=== PATIENT | male | born 1955 | race Caucasian/White ===

== ENCOUNTER 2017-05-13 12:59 | Inpatient (IN) | payer OTHER ==
[~2017-05-13] VITALS: Ht 170.2 cm; Wt 91.6 kg
[2017-05-13] MEDS ORDERED: ONDANSETRON INJ 2 MG/ML 2 ML VIAL ONE (13:19)
[2017-05-13] MEDS ORDERED: SODIUM CHLORIDE 0.9% 1000ML 1,000 ML IV STA (13:26)
[2017-05-13 13:56] LABS: BASO % 0.4 %; BASO ABS # 0.03 K/uL (0-0.2); COMPLETE YES; EOS % 0.3 %; HEMATOCRIT 41.5 % (42-52); IG% 0.7 %; LYMPH % 21.4 %; LYMPH ABS # 1.62 K/uL (1.2-3.4); MEAN CORPUSCULAR HEMOGLOBIN 32.1 pg (25-34); MEAN CORPUSCULAR HGB CONC 36.9 g/dl (32-36); MEAN PLATELET VOLUME 11.1 fL (7.4-10.4); MONO % 7.8 %; NEUT % 69.4 %; PLATELET COUNT 303 K/uL (130-400); RED BLOOD COUNT 4.77 M/uL (4.7-6.1); WHITE BLOOD COUNT 7.56 K/uL (4.8-10.8)
--- NOTE | 2017-05-13 14:01 | DIAGNOSTIC IMAGING REPORT ---
CHEST ONE VIEW PORTABLE HISTORY: Evaluate Fever/Sepsis COMPARISON: None. FINDINGS: No pneumothorax. The heart is moderately enlarged. No pleural effusions. No focal lung consolidations to suggest pneumonia. Tortuous thoracic aorta. No evidence for pulmonary edema. Low lung volumes. IMPRESSION: Low lung volumes. Moderate cardiomegaly. Electronically signed by: Jeffery Hough M.D. 05/13/2017 2:00 PM Dictated Date/Time: 05/13/2017 1:59 PM
--- NOTE | 2017-05-13 14:12 | DIAGNOSTIC IMAGING REPORT ---
HEAD CT NONCONTRAST CT DOSE: 767.83 mGy.cm HISTORY: Evaluate Fever/Sepsis TECHNIQUE: Multiaxial CT images of the head were performed without the use of intravenous contrast. Automated exposure control was utilized for this study. Comparison: None. Findings: Motion artifact. The paranasal sinuses and mastoid air cells are clear. The calvarium and skull base are intact. There is no mass, hematoma, midline shift, acute infarct. White matter hypodensity is nonspecific but suggestive of microvascular ischemic change. The ventricles and sulci demonstrate mild age-related involutional changes. 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 Impression: Motion artifact. No definite acute intracranial abnormality. Electronically signed by: Jeffery Hough M.D. 05/13/2017 2:11 PM Dictated Date/Time: 05/13/2017 2:07 PM
[2017-05-13 14:41] LABS: ALKALINE PHOSPHATASE 74 U/L (45-117); ALT/SGPT 100 U/L (12-78); AST/SGOT 64 U/L (15-37); BLOOD UREA NITROGEN 20 mg/dl (7-18); BUN/CREATININE RATIO 13.1 (10-20); CALCIUM 9.4 mg/dl (8.5-10.1); CARBON DIOXIDE 22 mmol/L (21-32); CHLORIDE 96 mmol/L (98-107); CKMB/CK RATIO 6.3 (0-3.0); GLUCOSE 633 mg/dl (70-99); MAGNESIUM 2.2 mg/dl (1.8-2.4); POTASSIUM 3.9 mmol/L (3.5-5.1); SODIUM 132 mmol/L (136-145); THYROID STIMULATING HORMONE 0.661 uIu/ml (0.300-4.500)
[2017-05-13 14:47] LABS: ARTERIAL BLD GAS O2 SATURATION 94.4 % (90-95); ARTERIAL BLOOD GAS BASE EXCESS -1.6 mEq/L (-9-1.8); ARTERIAL BLOOD GAS HCO3 21 mmol/L (19-24); ARTERIAL BLOOD GAS PO2 73 mm/Hg (80-95); ARTERIAL BLOOD GAS pH 7.46 (7.35-7.45)
[2017-05-13 14:53] LABS: ALLEN TEST POS (POS); O2 ADMINISTRATION ROOM AIR
[2017-05-13] MEDS ORDERED: DKA GOAL RANGE 150-250 mg/dl 1 EA ONE (15:00)
[2017-05-13 15:01] LABS: BETA-HYDROXYBUTYRATE 12.34 mg/dL (0.2-2.81)
--- NOTE | 2017-05-13 15:01 | EMERGENCY ROOM VISIT NOTE ---
History Report prepared by Maximo: Sadaf Simpson Under the Supervision of: Dr. Derek Espana D.O. First contact with patient: 13:26 Chief Complaint: HYPERGLYCEMIA Stated Complaint: HYPERGLYCEMIA/HTN Nursing Triage Summary: Pt arrives ALS from [facility]. Pt walking to medical area and had a syncopal episode, fell and hit head. Abrasion above R eye. Pts BSG found to be "HI" on meter for both medical staff and EMS. BP elevated 210/144. Pt received 20 units regular insulin sq and 0.2 mg clonidine WELL DRILL OPERATOR ROTARY DRILL. Pt also received NSS 500 bolus. Pt normally stays in the MH unit, hasn't taken meds in approx 1 month. Pt is confused, garbled speech and will not follow commands. Pt had emesis x1 on arrival to ER. BSG also reads "HI" when taken on arrival. History of Present Illness The patient is a 61 year old male who presents to the Emergency Room with complaints of persistent hyperglycemia that was noticed WELL DRILL OPERATOR ROTARY DRILL. The patient came to the ED via ambulance from [facility]. The history is limited secondary to altered mental status. The patient appears confused with garbles speech and will not follow commands. The history was obtained from nursing staff. The patient was walking to the medical area to give a urine sample when he experienced a syncopal episode. The patient fell and hit his head. He has an abrasion above his right eye from the fall. The patient's BSG was checked after the syncopal episode and the meter read "HI." His blood pressure was also checked at that time and was found to be 210/144. The patient was given 20 units of regular insulin SQ at 1100 and 0.2 mg of Clonidine at 1138. The patient also received 500 NSS bolus en route to the ED. The patient typically resides in the [facility] unit at the [facility] and he has not taken his medications in 1 month. The patient experienced one episode of vomiting upon arrival to the ED. The patient's BSG read "HI" on the meter in the ambulance as well as on the meter upon arrival to the ED. EMS reported that at baseline the patient is able to talk and carry on some kind of conversation. Source of History: EMS, nursing staff History Limited By: AMS Onset: WELL DRILL OPERATOR ROTARY DRILL Position: other (global) Quality: other (hyperglycemia) Timing: other (persistent) Associated Symptoms: + LOC, + vomiting Note: hypertension Review of Systems See HPI for pertinent positives & negatives. A total of 10 systems reviewed and were otherwise negative. Past Medical & Surgical Medical Problems: (1) Diabetes Family History Unobtainable Social History Smoking Status: Unknown if Ever Smoked Housing Status: other ([facility]) Physical Exam Vital Signs Date Time Temp Pulse Resp B/P (MAP) Pulse Ox O2 Delivery O2 Flow Rate FiO2 05/13/17 13:27 115 26 187/140 96 Nasal Cannula 2.0 05/13/17 13:20 36.8 100 28 210/144 92 Room Air 05/13/17 13:14 103 Physical Exam CONSTITUTIONAL/VITAL SIGNS: Reviewed / noted above. GENERAL: Non-toxic in appearance. INTEGUMENTARY: Warm, dry, and [place]. HEAD: Normocephalic. EYES: without scleral icterus or trauma. ENT/OROPHARYNX: clear and moist. LYMPHADENOPATHY/NECK: Is supple without lymphadenopathy or meningismus. RESPIRATORY: Lungs clear and equal. CARDIOVASCULAR: Regular rate and rhythm. GI/ABDOMEN: Soft and nontender. No organomegaly or pulsatile mass. No rebound or guarding. Normal bowel sounds. EXTREMITIES: Warm and well perfused. BACK: No CVA tenderness. NEUROLOGICAL: Does not respond to verbal stimuli. Does not follow commands. Somewhat confused. Nonverbal. Intact without focal deficits. PSYCHIATRIC: normal affect. MUSCULOSKELETAL: Normally developed with good muscle tone. Medical Decision & Procedures ER Provider Diagnostic Interpretation: Radiology results as stated below per my review and radiologist interpretation: CHEST ONE VIEW PORTABLE FINDINGS: No pneumothorax. The heart is moderately enlarged. No pleural effusions. No focal lung consolidations to suggest pneumonia. Tortuous thoracic aorta. No evidence for pulmonary edema. Low lung volumes. IMPRESSION: Low lung volumes. Moderate cardiomegaly. Electronically signed by: Jeffery Hough M.D. 05/13/2017 2:00 PM Dictated Date/Time: 05/13/2017 1:[address] NONCONTRAST Findings: Motion artifact. The paranasal sinuses and mastoid air cells are clear. The calvarium and skull base are intact. There is no mass, hematoma, midline shift, acute infarct. White matter hypodensity is nonspecific but suggestive of microvascular ischemic change. The ventricles and sulci demonstrate mild age-related involutional changes. 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 Impression: Motion artifact. No definite acute intracranial abnormality. Electronically signed by: Jeffery Hough M.D. 05/13/2017 2:11 PM Dictated Date/Time: 05/13/2017 2:07 PM Laboratory Results 05/13/17 13:40 Red Blood Count 4.77, Mean Corpuscular Volume 87.0, Mean Corpuscular Hemoglobin 32.1, Mean Corpuscular Hemoglobin Concent 36.9, Mean Platelet Volume 11.1, Neutrophils (%) (Auto) 69.4, Lymphocytes (%) (Auto) 21.4, Monocytes (%) (Auto) 7.8, Eosinophils (%) (Auto) 0.3, Basophils (%) (Auto) 0.4, Neutrophils # (Auto) 5.25, Lymphocytes # (Auto) 1.62, Monocytes # (Auto) 0.59, Eosinophils # (Auto) 0.02, Basophils # (Auto) 0.03 05/13/17 13:40 Test 05/13/17 13:14 05/13/17 13:40 05/13/17 14:36 05/13/17 14:50 Bedside Glucose > 600 mg/dl (70-99) White Blood Count 7.56 K/uL (4.8-10.8) Red Blood Count 4.77 M/uL (4.7-6.1) Hemoglobin 15.3 g/dL (14.0-18.0) Hematocrit 41.5 % (42-52) Mean Corpuscular Volume 87.0 fL (80-100) Mean Corpuscular Hemoglobin 32.1 pg (25-34) Mean Corpuscular Hemoglobin Concent 36.9 g/dl (32-36) Platelet Count 303 K/uL (130-400) Mean Platelet Volume 11.1 fL (7.4-10.4) Neutrophils (%) (Auto) 69.4 % Lymphocytes (%) (Auto) 21.4 % Monocytes (%) (Auto) 7.8 % Eosinophils (%) (Auto) 0.3 % Basophils (%) (Auto) 0.4 % Neutrophils # (Auto) 5.25 K/uL (1.4-6.5) Lymphocytes # (Auto) 1.62 K/uL (1.2-3.4) Monocytes # (Auto) 0.59 K/uL (0.11-0.59) Eosinophils # (Auto) 0.02 K/uL (0-0.5) Basophils # (Auto) 0.03 K/uL (0-0.2) RDW Standard Deviation 38.0 fL (36.4-46.3) RDW Coefficient of Variation 11.9 % (11.5-14.5) Immature Granulocyte % (Auto) 0.7 % Immature Granulocyte # (Auto) 0.05 K/uL (0.00-0.02) Anion Gap 14.0 mmol/L (3-11) Est Creatinine Clear Calc Drug Dose 56.2 ml/min Estimated GFR () 56.6 Estimated GFR (Non- 48.8 BUN/Creatinine Ratio 13.1 (10-20) Lactic Acid Level 3.0 mmol/L (0.4-2.0) Calcium Level 9.4 mg/dl (8.5-10.1) Magnesium Level 2.2 mg/dl (1.8-2.4) Total Bilirubin 0.4 mg/dl (0.2-1) Direct Bilirubin 0.2 mg/dl (0-0.2) Aspartate Amino Transf (AST/SGOT) 64 U/L (15-37) Alanine Aminotransferase (ALT/SGPT) 100 U/L (12-78) Alkaline Phosphatase 74 U/L (45-117) Ammonia 23.0 umol/L (11-32) Total Creatine Kinase 65 U/L (39-308) Creatine Kinase MB 4.1 ng/ml (0.5-3.6) Creatine Kinase MB Ratio 6.3 (0-3.0) Troponin I < 0.015 ng/ml (0-0.045) Total Protein 8.2 gm/dl (6.4-8.2) Albumin 3.8 gm/dl (3.4-5.0) Lipase 431 U/L (73-393) Beta-Hydroxybutyric Acid 12.34 mg/dL (0.2-2.81) Thyroid Stimulating Hormone (TSH) 0.661 uIu/ml (0.300-4.500) Arterial Blood pH 7.46 (7.35-7.45) Arterial Blood Partial Pressure CO2 31 mmHg (35-46) Arterial Blood Partial Pressure O2 73 mm/Hg (80-95) Arterial Blood HCO3 21 mmol/L (19-24) Arterial Blood Oxygen Saturation 94.4 % (90-95) Arterial Blood Base Excess -1.6 mEq/L (-9-1.8) Arterial Blood Gas Delivery ROOM AIR Rickie Test POS (POS) Laboratory results as stated above per my review. Medications Administered Medications (Trade) Dose Ordered Sig/Bailee Route Start Time Stop Time Status Last Admin Dose Admin Ondansetron HCl (Zofran Inj) 4 mg STK-MED ONCE .ROUTE 05/13/17 13:19 05/13/17 13:20 DC 05/13/17 13:38 4 MG Sodium Chloride 1,000 ml @ 999 mls/hr Q1H1M STAT IV 05/13/17 13:26 05/13/17 14:26 DC 05/13/17 13:46 999 MLS/HR ECG Indication: syncope Rate (beats per minute): 103 Rhythm: sinus tachycardia Findings: RBBB, no acute ischemic change, no ectopy ED Course 1319: Ordered Zofran Inj 4 mg IV 1326: Sodium Chloride 1000 ml @ 999 mls/hr IV 1329: Previous medical records were reviewed. The patient was evaluated in room C8. A complete history and physical examination was performed. 1455: On reevaluation, the patient is resting comfortably. The patient will be evaluated for further management and care. 1457: Discussed the patient's case with Dr. Amarilis BEATTY. The patient will be evaluated for further treatment and disposition. Medical Decision Differential includes acute coronary syndrome, myocardial infarction, CVA, TIA, anemia, infection, pneumonia, UTI, pyelonephritis, poor nutrition, dehydration, electrolyte disturbance,hypoglycemia. Medication Reconciliation: I attest that I have personally reviewed the patient' s current medication list. Blood pressure Screening: Patient was found to have an elevated blood pressure and was referred to their primary doctor for recheck and further treatment. This is a 61-year-old male who presents to the ED with a chief complaint of altered mental status. [facility]. The patient apparently lives on the mental health unit in the [facility]. He is normally able to carry on a conversation, per EMS. The patient is nonverbal at this time. He is confused and unable to follow commands. He was found to have hyperglycemia at the [facility] and received 20 units of subcutaneous insulin at 11: 30. He received clonidine 0.2 mg orally at the same time. The patient reportedly had emesis when he arrived here. His initial pulse ox was 88% on room air. Chest x-ray did not show acute disease. His blood pressure was elevated at 187/140. The patient's CBC is normal. His blood sugar was 633. Lactic was 3.0. CAT scan of the head did not show acute disease. He had reportedly fallen. Ammonia level was normal. BUN is 20 and creatinine is 1.5. The patient was given IV fluids. He was started on IV insulin drip. His ABG reveals a compensated metabolic acidosis with adequate oxygenation. The patient was given IV Zofran. The patient will be seen by the hospitalist for further inpatient evaluation and care. Consults Time Called: 1445 Consulting Physician: Dr. Amarilis BEATTY Returned Call: [phone] Discussed the patient's case with Dr. Amarilis BEATTY. The patient will be evaluated for further treatment and disposition. Impression Primary Impression: Hyperglycemia Additional Impression: Altered mental status Scribe Attestation The scribe's documentation has been prepared under my direction and personally reviewed by me in its entirety. I confirm that the note above accurately reflects all work, treatment, procedures, and medical decision making performed by me. Departure Information Dispostion Being Evaluated By Hospitalist Referrals No Doctor, Assigned (PCP) Patient Instructions My [facility] Problem Qualifiers Additional Impression: Altered mental status Altered mental status type: unspecified Qualified Codes: R41.82 - Altered mental status, unspecified
[2017-05-13 15:13] LABS: PARTIAL THROMBOPLASTIN RATIO 0.9; PROTHROMBIN TIME (PATIENT) 10.6 SECONDS (9.0-12.0)
[2017-05-13] MEDS ORDERED: ASPI-232 PO (15:18)
[2017-05-13] MEDS ORDERED: CITA40TA12 PO (15:18)
[2017-05-13] MEDS ORDERED: RISP1TAB3 PO (15:18)
[2017-05-13] MEDS ORDERED: LSN40 PO (15:18)
[2017-05-13] MEDS ORDERED: AMLO-114 PO (15:18)
[2017-05-13] MEDS ORDERED: [UNRECOGNIZED DRUG - OTHER] SQ (15:18)
[2017-05-13] MEDS ORDERED: GLIP10TA10 PO (15:18)
[2017-05-13] MEDS ORDERED: ATOR10TA82 PO (15:18)
[2017-05-13] MEDS ORDERED: DIPH1TAB87 PO (15:18)
[2017-05-13] MEDS ORDERED: HYDR25TA4 PO (15:18)
[2017-05-13] MEDS ORDERED: METF1000 PO (15:18)
[2017-05-13] MEDS ORDERED: NovoLIN-R INSULIN PER UNIT CHARGE SC STA (16:11)
[2017-05-13] MEDS ORDERED: SODIUM CHLORIDE 0.9% 1000ML 1,000 ML IV SCH (16:28)
[2017-05-13] MEDS ORDERED: MODERATE STRESS LEVEL ONE (16:30)
[2017-05-13] MEDS ORDERED: NITROGLYCERIN 0.4 MG SL PER TAB CHARGE SL PRN (16:30)
[2017-05-13] MEDS ORDERED: MAGNESIUM HYDROXIDE SUSP 30 ML UDC PO PRN (16:30)
[2017-05-13] MEDS ORDERED: METOPROLOL TARTRATE 1 MG/ML VIAL IV PRN (16:30)
[2017-05-13] MEDS ORDERED: POLYETHYLENE (MIRALAX) 17 GM PACK PO PRN (16:30)
[2017-05-13] MEDS ORDERED: ACETAMINOPHEN 325 MG TAB PO PRN (16:30)
[2017-05-13] MEDS ORDERED: ALUMINUM/MAGNESIUM/SIMETH (MAALOX MAX) 30 ML UDC PO PRN (16:30)
[2017-05-13] MEDS ORDERED: DKA GOAL RANGE 150-250 mg/dl 1 EA SCH (16:30)
[2017-05-13] MEDS ORDERED: ONDANSETRON INJ 2 MG/ML 2 ML VIAL IV PRN (16:30)
[2017-05-13] MEDS ORDERED: PHARMACY GLYCEMIC MGMT CONSULT PRN (16:30)
[2017-05-13] MEDS ORDERED: INSULIN IV INFUSION PROTOCOL SCH (16:57)
--- NOTE | 2017-05-13 17:12 | History and Physical ---
History & Physical Date & Time of Service: May 13, 2017 at 16:40 Chief Complaint: Hyperglycemia/Htn Primary Care Physician: Caitie JIMÉNEZ History of Present Illness Source: clinic records, hospital records, other (security guards) Patient is a 61 y/o male, with PMHx of HTN, dyslipidemia, T2DM, and mental health issues, who presented to the ED from [facility] because of persistent hyperglycemia, AMS, and syncopal episode. History was obtained from ED HPI as patient has AMS and will not answer questions- he stared straight ahead through entire interview. According to the nurse in ED, patient will respond periodically to her answers/commands. Per security guards, at baseline, patient does not speak much, but that was the extend of their knowledge. According to ED record, the patient was walking to the medical area where he experienced a syncopal episode and fell hitting his head. His BSG was checked after the fall and read "HI," and his BP was 210/144. The patient was given 20 u regular insulin @ 1100 and 0.2 mg Clonidine @1138. He received 500 NS en route to hospital by EMS. The patient resides in the mental health unit at the care home and has not taken his medications in 1 month. He experienced 1 episode of vomiting MANAGER INTERFACE. At ED, initial reading was >600; patient was given 10 u novolin. ROS could not be obtained secondary to patient's status. Past Medical/Surgical History Medical Problems: 1. HTN 2. Dyslipidemia 3. T2DM 4. Mental health issue Surgical history: Unable to obtained due to AMS Family History Unobtainable Social History Smoking Status: Unknown if Ever Smoked Allergies Coded Allergies: No Known Allergies (Unverified , 05/13/17) Home Medications Scheduled Amlodipine (Norvasc), 10 MG PO DAILY Aspirin (Aspir-81), 1 TAB PO DAILY Atorvastatin (Lipitor), 10 MG PO DAILY Citalopram Hydrobromide (Celexa), 40 MG PO HS Diphenhydramine Hcl (Benadryl Allergy), 3 CAP PO HS Glipizide (Glipizide), 1 TAB PO BID Hydrochlorothiazide (Hctz), 25 MG PO DAILY Insulin Human Regular (Humulin R), 20 UNITS SQ DAILY Lisinopril (Lisinopril), 1 TAB PO DAILY Metformin Hcl (Glucophage), 1,000 MG PO BIDM Risperidone (Risperdal), 1 MG PO HS Physical Exam Vital Signs Date Time Temp Pulse Resp B/P (MAP) Pulse Ox O2 Delivery O2 Flow Rate FiO2 05/13/17 15:45 120 24 191/131 93 Nasal Cannula 2.0 05/13/17 15:07 108 24 195/121 95 Nasal Cannula 2.0 05/13/17 13:27 115 26 187/140 96 Nasal Cannula 2.0 05/13/17 13:20 36.8 100 28 210/144 92 Room Air 05/13/17 13:14 103 General Appearance: no apparent distress, + obese Head: normocephalic Eyes: normal inspection, PERRL ENT: hearing grossly normal Neck: supple Respiratory/Chest: lungs clear, no respiratory distress, no accessory muscle use Cardiovascular: regular rate, rhythm Abdomen/GI: normal bowel sounds, non tender, soft Extremities/Musculoskelatal: no calf tenderness, no pedal edema Neurologic/Psych: alert, + pertinent finding (stares straight ahead throughout interview ) Skin: normal color, warm/dry, no rash Diagnostics Laboratory Results Results Past 24 Hours Test 05/13/17 13:14 05/13/17 13:40 05/13/17 14:36 05/13/17 14:50 Range/Units Bedside Glucose > 600 70-99 mg/dl White Blood Count 7.56 4.8-10.8 K/uL Red Blood Count 4.77 4.7-6.1 M/uL Hemoglobin 15.3 14.0-18.0 g/dL Hematocrit 41.5 42-52 % Mean Corpuscular Volume 87.0 80-100 fL Mean Corpuscular Hemoglobin 32.1 25-34 pg Mean Corpuscular Hemoglobin Concent 36.9 32-36 g/dl Platelet Count 303 130-400 K/uL Mean Platelet Volume 11.1 7.4-10.4 fL Neutrophils (%) (Auto) 69.4 % Lymphocytes (%) (Auto) 21.4 % Monocytes (%) (Auto) 7.8 % Eosinophils (%) (Auto) 0.3 % Basophils (%) (Auto) 0.4 % Neutrophils # (Auto) 5.25 1.4-6.5 K/uL Lymphocytes # (Auto) 1.62 1.2-3.4 K/uL Monocytes # (Auto) 0.59 0.11-0.59 K/uL Eosinophils # (Auto) 0.02 0-0.5 K/uL Basophils # (Auto) 0.03 0-0.2 K/uL RDW Standard Deviation 38.0 36.4-46.3 fL RDW Coefficient of Variation 11.9 11.5-14.5 % Immature Granulocyte % (Auto) 0.7 % Immature Granulocyte # (Auto) 0.05 0.00-0.02 K/uL Sodium Level 132 136-145 mmol/L Potassium Level 3.9 3.5-5.1 mmol/L Chloride Level 96 98-107 mmol/L Carbon Dioxide Level 22 21-32 mmol/L Anion Gap 14.0 3-11 mmol/L Blood Urea Nitrogen 20 7-18 mg/dl Creatinine 1.50 0.60-1.40 mg/dl Est Creatinine Clear Calc Drug Dose 56.2 ml/min Estimated GFR () 56.6 Estimated GFR (Non- 48.8 BUN/Creatinine Ratio 13.1 10-20 Random Glucose 633 70-99 mg/dl Lactic Acid Level 3.0 0.4-2.0 mmol/L Calcium Level 9.4 8.5-10.1 mg/dl Magnesium Level 2.2 1.8-2.4 mg/dl Total Bilirubin 0.4 0.2-1 mg/dl Direct Bilirubin 0.2 0-0.2 mg/dl Aspartate Amino Transf (AST/SGOT) 64 15-37 U/L Alanine Aminotransferase (ALT/SGPT) 100 12-78 U/L Alkaline Phosphatase 74 45-117 U/L Ammonia 23.0 11-32 umol/L Total Creatine Kinase 65 39-308 U/L Creatine Kinase MB 4.1 0.5-3.6 ng/ml Creatine Kinase MB Ratio 6.3 0-3.0 Troponin I < 0.015 0-0.045 ng/ml Total Protein 8.2 6.4-8.2 gm/dl Albumin 3.8 3.4-5.0 gm/dl Lipase 431 73-393 U/L Beta-Hydroxybutyric Acid 12.34 0.2-2.81 mg/dL Thyroid Stimulating Hormone (TSH) 0.661 0.300-4.500 uIu/ml Arterial Blood pH 7.46 7.35-7.45 Arterial Blood Partial Pressure CO2 31 35-46 mmHg Arterial Blood Partial Pressure O2 73 80-95 mm/Hg Arterial Blood HCO3 21 19-24 mmol/L Arterial Blood Oxygen Saturation 94.4 90-95 % Arterial Blood Base Excess -1.6 -9-1.8 mEq/L Arterial Blood Gas Delivery ROOM AIR Rickie Test POS POS Prothrombin Time 10.6 9.0-12.0 SECONDS Prothromb Time International Ratio 1.0 0.9-1.1 Activated Partial Thromboplast Time 24.5 21.0-31.0 SECONDS Partial Thromboplastin Ratio 0.9 Microbiology Results 05/13/17 Blood Culture, Received Pending 05/13/17 Blood Culture, Received Pending Diagnostic Radiology HEAD CT NONCONTRAST CT DOSE: 767.83 mGy.cm HISTORY: Evaluate Fever/Sepsis TECHNIQUE: Multiaxial CT images of the head were performed without the use of intravenous contrast. Automated exposure control was utilized for this study. Comparison: None. Findings: Motion artifact. The paranasal sinuses and mastoid air cells are clear. The calvarium and skull base are intact. There is no mass, hematoma, midline shift, acute infarct. White matter hypodensity is nonspecific but suggestive of microvascular ischemic change. The ventricles and sulci demonstrate mild age-related involutional changes. 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 Impression: Motion artifact. No definite acute intracranial abnormality. Electronically signed by: Jeffery Hough M.D. 05/13/2017 2:11 PM Dictated Date/Time: 05/13/2017 2:07 PM The status of this report is Signed. Draft = Not yet reviewed or approved by Radiologist. Signed = Reviewed and approved by Radiologist. CHEST ONE VIEW PORTABLE HISTORY: Evaluate Fever/Sepsis COMPARISON: None. FINDINGS: No pneumothorax. The heart is moderately enlarged. No pleural effusions. No focal lung consolidations to suggest pneumonia. Tortuous thoracic aorta. No evidence for pulmonary edema. Low lung volumes. IMPRESSION: Low lung volumes. Moderate cardiomegaly. Electronically signed by: Jeffery Hough M.D. 05/13/2017 2:00 PM Dictated Date/Time: 05/13/2017 1:59 PM The status of this report is Signed. Draft = Not yet reviewed or approved by Radiologist. Signed = Reviewed and approved by Radiologist. <AttendingPhy></AttendingPhy> <FamilyPhy>No Doctor, Assigned</FamilyPhy> < PrimaryPhy>No Doctor, Assigned</PrimaryPhy> <UnitNumber>[id number]</UnitNumber> <VisitNumber>[id number] EKG SHELDON MENA ID:[id number] 13-MAY-2017 13:15:40 [facility] Sinus tachycardia with Fusion complexes Left axis deviation Right bundle branch block Inferior infarct , age undetermined Abnormal ECG No previous ECGs available 25mm/s 10mm/mV 150Hz 8.0 SP2 12SL 241 SEBASTI[place]N: 10 Referred by: Unconfirmed Vent. rate 103 BPM TN interval 188 ms QRS duration 148 ms QT/QTc 382/500 ms P-R-T axes 37 -36 31 1955 (61 yr) Male Room:C08 Loc:15 Remedial Reading Teacher:JEFFERSON Chapman ind: Impression Assessment and Plan Patient is a 61 y/o male, with PMHx of HTN, dyslipidemia, T2DM, and mental health issues, who presented to the ED from [facility] because of persistent hyperglycemia, AMS, and syncopal episode. T2DM in DKA w/ compensated metabolic acidosis/AMS/Syncopal episode: - Admit to tele for cardiac monitoring - Trend cardiac enzymes- initial cardiac enzymes negative - EKG QAM and PRN w/ CP - O2 protocol, wean as tolerated - NPO - DKA protocol- IV insulin drip w/ routine labs -- Pharmacy consulted for diabetic management -- Home usual regimen of: Metformin 1000 mg BID, Glipizide 10 mg BID, and Humulin 20 u SQ daily - Will place Wing due to multiple episodes of urinary incontinence in ED - Check hA1C - Head CT and CXR- unremarkable for acute process - UA and BCx pending - Ammonia level WNL - Lactic acid elevated at 3.0- repeat q6 hrs HTN- UNCONTROLLED: - Continue Amlodipine 10 mg daily and 81 mg daily - Hold Lisinopril 40 mg daily and HCTZ 25 mg daily due to ?WOLFGANG - Hydralazine IV 10 mg PRN for SBP >180 or DBP >100 Tachycardia: IV Metoprolol 5 mg q6 hrs PRN for HR >125 and for additional BP management w/ hold parameters ?WOLFGANG on CKD ?stage 3- unsure of baseline Cr.: - Treat w/ IVF - Hold nephrotoxic agents - Follow PRP Mental health issues- unsure of diagnoses due to AMS: - Continue Risperidone 1 mg HS and Celexa 40 mg HS - Per records, patient has not taken medications in 1 month- if AMS does not improve, consider psych consultation Dyslipidemia: Continue Atorvastatin 10 mg daily Elevated LFTs: Repeat CMP tomorrow AM Elevated lipase, ?secondary to DKA: Amylase and lipase tomorrow AM GI Prophylaxis: Maalox PRN, IV Zofran PRN, Colace and/or Milk of Mag PRN DVT prophylaxis: Lovenox 40 mg SQ q24 hrs, DAMARI and SCDs Code Status: This could not be obtained due to patient's status- could not find code status in record Dispo: From [facility], resides in Mental Health Unit PA Physician Supervision Note: I was present with the PA during the history and exam. I discussed the case with the resident and agree with the findings and plan as documented in the note. Any exceptions or clarifications are listed here: 61 y/o M Hx psychosis and DM residing in the mental health unit of the local [facility]. May have been refusing meds for an extended period. Exhibited lethargy and N/V = POC Glu > 600 - sent to the hospital for evaluation. He does not respond to questioning - per guards in the room, this may be his baseline - he apparently spoke with the nurse for a brief period. OE Awake - will not answer questions or follow commands - moves freely S1,2 R CTAB NT, ND No CCE P: IVF and insulin drip Restart prescribed psych meds and consult mental health if there is no behavioral improvement with correction of acute medical issues Documented By: Augustine Olmos Level of Care Telemetry Resuscitation Status FULL RESUSCITATION VTE Prophylaxis VTE Risk Assessment Done? Y/N: Yes Risk Level: Moderate Given or contraindicated: Enoxaparin (Lovenox)SQ, T.E.D. Stockings, SCD's
[2017-05-13] MEDS ORDERED: GLUCAGON FOR INJ 1 MG VIAL SQ PRN (17:15)
[2017-05-13] MEDS ORDERED: DEXTROSE 50% 50 ML SYR IV PRN (17:15)
[2017-05-13] MEDS ORDERED: GLUCOSE 40% GEL 15 GM TUBE PO PRN (17:15)
[2017-05-13] MEDS ORDERED: GLUCOSE 10 TABS/TUBE PO PRN (17:15)
[2017-05-13] MEDS: INSULIN ASPART 100 UNITS/ML 3 ML PEN SC SCH ×2 (17:30→20:36)
[2017-05-13] MEDS ORDERED: INSULIN HUMAN REGULAR IV BOLUS 2.5 UNIT in SYRINGE 0 ML IV SCH (17:30)
[2017-05-13] MEDS: PENDING D5 1/2NS+20mEq KCL IVF SCH ×3 (17:39→22:30)
[2017-05-13] MEDS: PENDING NSS+20mEq KCL IVF SCH ×3 (17:39→21:17)
[2017-05-13 17:45] VITALS: BP 160/120; PULSE 126; TEMP 37.9; O2SAT 94; BMI 33.8
[2017-05-13] MEDS ORDERED: ACETAMINOPHEN 650 MG SUPP PR PRN (18:00)
[2017-05-13] MEDS: ENOXAPARIN 40 MG/0.4 ML SYR SC SCH (18:22)
[2017-05-13] MEDS: INSULIN REGULAR 250 UNITS in SODIUM CHLORIDE 0.9% 250ML 250 ML IV SCH (18:29)
[2017-05-13] MEDS ORDERED: PNEUMOCOCCAL POLYSACCHARIDES 25 MCG/0.5 ML VIAL/SYR IM. ONE (18:45)
[2017-05-13] MEDS ORDERED: PNEUMOCOCCAL ADMINISTRATION CHARGE ONE (18:45)
[2017-05-13 19:06] VITALS: BP 171/117; PULSE 125; TEMP 37.7; O2SAT 96
[2017-05-13] MEDS: RISPERIDONE 1 MG TAB PO SCH (19:38)
[2017-05-13] MEDS: CITALOPRAM 40 MG TAB PO SCH (19:38)
[2017-05-13 19:55] LABS: URINE APPEARANCE CLEAR (CLEAR); URINE BILIRUBIN NEG (NEG); URINE COLOR YELLOW; URINE EPITHELIAL CELL AUTO >30 /lpf (0-5); URINE NITRITE NEG (NEG); URINE PH 6.5 (4.5-7.5); URINE SPECIFIC GRAVITY 1.036 (1.000-1.030); UROBILINOGEN NEG (NEG); ZZUR CULT IF INDIC CLEAN CATCH NO
[2017-05-13 19:57] LABS: MANUAL MICROSCOPIC REQUIRED? NO; REVIEW REQ? NO
[2017-05-13 20:12] VITALS: BP 152/111; PULSE 118; O2SAT 97
[2017-05-13 20:53] LABS: BUN/CREATININE RATIO 11.6 (10-20); CALCIUM 9.2 mg/dl (8.5-10.1); CREATININE 1.5 mg/dl (0.60-1.40); MAGNESIUM 2.3 mg/dl (1.8-2.4); PHOSPHORUS 2.7 mg/dl (2.5-4.9); POTASSIUM 4.1 mmol/L (3.5-5.1)
[2017-05-13] MEDS ORDERED: NURSING VERBAL MED ORDER ONE (21:00)
[2017-05-13 21:09] LABS: BETA-HYDROXYBUTYRATE 7.13 mg/dL (0.2-2.81)
[2017-05-13] MEDS ORDERED: NSS + 20MEQ KCL 1000ML 1,000 ML IV SCH (21:15)
[2017-05-13] MEDS: HydrALAZINE HCL 20 MG/ML VIAL IV. PRN (23:39)
[2017-05-13 23:57] VITALS: BP 163/115; PULSE 102; TEMP 36.7; O2SAT 97
[2017-05-14] VITALS (8 sets, daily range): BP systolic 151–179; BP diastolic 93–113; PULSE 85–95; TEMP 36.8–37; O2SAT 91–94; Ht 170.2 cm; Wt 91.6 kg
[2017-05-14] MEDS: PENDING D5 1/2NS+20mEq KCL IVF SCH ×4 (00:30→06:26)
[2017-05-14] MEDS: PENDING NSS+20mEq KCL IVF SCH ×4 (00:30→06:26)
[2017-05-14 00:36] LABS: BLOOD UREA NITROGEN 18 mg/dl (7-18); BUN/CREATININE RATIO 13.6 (10-20); CARBON DIOXIDE 24 mmol/L (21-32); CHLORIDE 106 mmol/L (98-107); GLUCOSE 349 mg/dl (70-99); MAGNESIUM 2.2 mg/dl (1.8-2.4); POTASSIUM 4.1 mmol/L (3.5-5.1); SODIUM 139 mmol/L (136-145)
[2017-05-14 00:38] LABS: PHOSPHORUS 2.8 mg/dl (2.5-4.9)
[2017-05-14 00:46] LABS: BETA-HYDROXYBUTYRATE 4.34 mg/dL (0.2-2.81)
--- NOTE | 2017-05-14 00:48 | EMERGENCY ROOM VISIT NOTE ---
ED Visit Note I received this patient in signout at the change of shift from Dr. Espana pending hospitalist evaluation and admission. I was contacted by nursing staff for insulin orders as the patient remained hyperglycemic. No insulin drip order had actually been submitted. The patient was given 10 units of subcutaneous regular insulin after review of his labs. Repeat blood glucose remains elevated. The patient was evaluated by the hospitalist service who will determine the need for insulin drip. Please see Dr. Trimble's notes for further details of the history, physical and visit.
[2017-05-14] MEDS ORDERED: NURSING VERBAL MED ORDER ONE (03:45)
[2017-05-14] MEDS: D5W AND 1/2NSS + 20MEQ KCL 1,000 ML IV SCH ×2 (04:25→10:47)
[2017-05-14 04:45] LABS: HEMATOCRIT 40.5 % (42-52); MEAN CELL VOLUME 86.7 fL (80-100); MEAN CORPUSCULAR HEMOGLOBIN 30.6 pg (25-34); MEAN CORPUSCULAR HGB CONC 35.3 g/dl (32-36); MEAN PLATELET VOLUME 10.5 fL (7.4-10.4); PLATELET COUNT 296 K/uL (130-400); RED BLOOD COUNT 4.67 M/uL (4.7-6.1); WHITE BLOOD COUNT 7.71 K/uL (4.8-10.8)
[2017-05-14 05:06] LABS: BUN/CREATININE RATIO 12.4 (10-20); CALCIUM 9.1 mg/dl (8.5-10.1); CREATININE 1.2 mg/dl (0.60-1.40); MAGNESIUM 2.1 mg/dl (1.8-2.4); POTASSIUM 3.8 mmol/L (3.5-5.1)
[2017-05-14 05:09] LABS: ALB/GLOB RATIO 0.9 (0.9-2); PHOSPHORUS 2.3 mg/dl (2.5-4.9)
[2017-05-14 06:51] LABS: ESTIMATED AVERAGE GLUCOSE 338 mg/dl; HA1C FLAG Normal (Normal)
[2017-05-14] MEDS: HydrALAZINE HCL 20 MG/ML VIAL IV. PRN (08:40)
[2017-05-14] MEDS: ASPIRIN 81 MG ECTAB PO SCH ×2 (08:49→09:09)
[2017-05-14] MEDS: ATORVASTATIN 10 MG TAB PO SCH ×2 (08:49→09:10)
[2017-05-14] MEDS: AMLODIPINE BESYLATE 5 MG TAB PO SCH (09:09)
[2017-05-14 09:32] LABS: BLOOD UREA NITROGEN 13 mg/dl (7-18); BUN/CREATININE RATIO 11.2 (10-20); CALCIUM 8.8 mg/dl (8.5-10.1); CARBON DIOXIDE 24 mmol/L (21-32); CHLORIDE 106 mmol/L (98-107); GLUCOSE 273 mg/dl (70-99); PHOSPHORUS 2.6 mg/dl (2.5-4.9); SODIUM 140 mmol/L (136-145)
[2017-05-14] MEDS ORDERED: PHARMACY GLYCEMIC MGMT CONSULT PRN (09:37)
[2017-05-14] MEDS ORDERED: INSULIN GLARGINE SOLOSTAR 100 UNITS/ML 3 ML PEN SC ONE (10:00)
[2017-05-14 10:01] LABS: MAGNESIUM 2.1 mg/dl (1.8-2.4); POTASSIUM 3.4 mmol/L (3.5-5.1)
[2017-05-14] MEDS: INSULIN ASPART 100 UNITS/ML 3 ML PEN SC SCH ×4 (10:51→23:55)
[2017-05-14] MEDS: INSULIN REGULAR 250 UNITS in SODIUM CHLORIDE 0.9% 250ML 250 ML IV SCH (11:30)
[2017-05-14] MEDS: DC IV INSULIN INFUSION ONE ×2 (11:37→15:04)
[2017-05-14 12:48] LABS: BUN/CREATININE RATIO 10.5 (10-20); CALCIUM 8.9 mg/dl (8.5-10.1); CREATININE 1.1 mg/dl (0.60-1.40); MAGNESIUM 2.1 mg/dl (1.8-2.4); PHOSPHORUS 2.3 mg/dl (2.5-4.9); POTASSIUM 3.5 mmol/L (3.5-5.1)
--- NOTE | 2017-05-14 14:20 | Pharmacy Progress Note ---
Glycemic Control Intl Consult Date of Service May 14, 2017. Scope Glycemic Pharmacist consulted by Kristina Jennings / Dr Ender Ta on 05/13/2017 for glycemic control and to write orders per [facility] inpatient glycemic control protocol Objective Weight (Kilograms): 91.600 Accuchecks BSG (last 24hrs): Test 05/13/17 16:16 05/13/17 17:19 05/13/17 19:33 05/13/17 20:20 Bedside Glucose 510 mg/dl (70-99) 533 mg/dl (70-99) 394 mg/dl (70-99) Random Glucose 402 mg/dl (70-99) Test 05/13/17 20:29 05/13/17 21:35 05/13/17 22:29 05/13/17 23:35 Bedside Glucose 384 mg/dl (70-99) 364 mg/dl (70-99) 404 mg/dl (70-99) 344 mg/dl (70-99) Test 05/14/17 00:03 05/14/17 00:35 05/14/17 01:31 05/14/17 02:30 Random Glucose 349 mg/dl (70-99) Bedside Glucose 416 mg/dl (70-99) 304 mg/dl (70-99) 264 mg/dl (70-99) Test 05/14/17 03:27 05/14/17 04:29 05/14/17 04:31 05/14/17 05:33 Bedside Glucose 236 mg/dl (70-99) 173 mg/dl (70-99) 275 mg/dl (70-99) Random Glucose 178 mg/dl (70-99) Test 05/14/17 06:34 05/14/17 07:47 05/14/17 08:20 05/14/17 08:49 Bedside Glucose 252 mg/dl (70-99) 286 mg/dl (70-99) 278 mg/dl (70-99) Random Glucose 273 mg/dl (70-99) Test 05/14/17 09:48 05/14/17 11:23 05/14/17 12:10 05/14/17 13:26 Bedside Glucose 281 mg/dl (70-99) 227 mg/dl (70-99) 178 mg/dl (70-99) Random Glucose 194 mg/dl (70-99) Laboratory Data (last 24hrs) Test 05/13/17 20:20 05/14/17 00:03 05/14/17 04:31 05/14/17 08:20 Anion Gap 10.0 mmol/L 9.0 mmol/L 7.0 mmol/L 10.0 mmol/L BUN/Creatinine Ratio 11.6 13.6 12.4 11.2 Blood Urea Nitrogen 17 mg/dl 18 mg/dl 15 mg/dl 13 mg/dl Creatinine 1.50 mg/dl 1.30 mg/dl 1.20 mg/dl 1.20 mg/dl Potassium Level 4.1 mmol/L 4.1 mmol/L 3.8 mmol/L mmol/L Sodium Level 137 mmol/L 139 mmol/L 141 mmol/L 140 mmol/L Hemoglobin A1c 13.4 % White Blood Count 7.71 K/uL Test 05/14/17 09:15 05/14/17 12:10 Potassium Level 3.4 mmol/L 3.5 mmol/L Anion Gap 8.0 mmol/L BUN/Creatinine Ratio 10.5 Blood Urea Nitrogen 12 mg/dl Creatinine 1.10 mg/dl Sodium Level 139 mmol/L HbA1c Test 05/14/17 04:31 Hemoglobin A1c 13.4 % (4.5-5.6) H Recent Pertinent Medications Outpatient Anti-diabetic Regimen: * not compliant x at least 1 month (listed as regular insulin 20 units daily, glipizide 10 mg BID, metformin 1 gm PO BID) The patient is currently receiving: * Insulin drip which runs between 3-5 units/hr Risk Factors for Insulin Resistance: * IVF: D51/2NS + 20 KCl @ 150 cc/hr * Diet: NPO Assessment & Plan ASSESSMENT: * ADA & AACE recommend a goal blood sugar range 140-180 mg/dl for the majority of critically ill & non-critically ill patients. However, more stringent targets may be selected in individual cases. Will utilize more stringent goal of 110-140mg/dl based on patient age & comorbidities. I believe that a tighter goal is necessary for this individual to achieve glycemic control. A higher goal range may not allow him to receive enough insulin to maintain blood sugar control. * Mr Purdy is a 61 y/o M who resides in the mental health unit at [facility]. He was admitted after a fall at the facility; he has weakness and dizziness. He has been refused his medications for a month. When admitted his blood sugar was greater than 600 mg/dL. He was started on an insulin drip in the ED. * This morning the patient's anion gap and bicarbonate normalized and it was determined to titrate him off of the insulin gtt. Since he was running between 3 -5 units/hr, I estimated that he could require up to 90 units of insulin a day. I calculated weight based stress of 2. The weight based dosing was more conservative. I started the full dose of weight based stress of 2 since the patient was insulin deficient then a dose of 15 units tonight. Then the full dose of Lantus was divided BID for tomorrow. I also utilized weight based stress of 2 for the correctional Novolog. PLAN FOR INPATIENT GLYCEMIC CONTROL: * Holding outpatient oral diabetes medications * Basal insulin with LANTUS 35 units SQ x1 then 15 units tonight; LANTUS 17 units SQ BID starting AM of 05/15/17 * Correctional Insulin with NOVOLOG per scale ACHS * Goal Range: Low 110 mg/dL - High 140 mg/dL * Correction Factor: 25 mg/dL/unit * Nutritional / Prandial insulin per carb ratio of 1 unit per 8 grams CHO consumed * Please note that the plan above was derived based on current level of insulin resistance and hospital stress. These recommendations are appropriate for inpatient admission only. Plan of care upon discharge will need to be reassessed to avoid potential outpatient hypo/hyperglycemia. Thank you.
--- NOTE | 2017-05-14 15:15 | Progress Note ---
Subjective Date of Service: May 14, 2017. Subjective Pt evaluation today including: conversation w/ patient, physical exam, lab review, review of inpatient medication list Pain: denies pain PO Intake: NPO, going to start diabetic diet Voiding: chau catheter in place patient alert today, denies pain, denies shortness of breath discussed DKA, he does not really grasp the issue, has mental health problems appreciate pharmacy glycemic consult, transitioning to Lantus, off the drip, AG closed Problem List Medical Problems: (1) Altered mental status Status: Acute (2) Diabetes Status: Chronic (3) Hyperglycemia Status: Acute Review of Systems Constitutional: + weakness, + fatigue All Other Systems: Reviewed and Negative Medications Current Inpatient Medications Medications (Trade) Dose Ordered Sig/Bailee Route Start Time Stop Time Status Last Admin Dose Admin Enoxaparin Sodium (Lovenox Inj) 40 mg Q24H SC 05/13/17 18:00 06/12/17 17:59 05/13/17 18:22 40 MG Acetaminophen (Tylenol Tab) 650 mg Q4H PRN PO 05/13/17 16:30 06/12/17 16:29 05/13/17 18:00 650 MG Al Hydrox/Mg Hydrox/Simethicone (Maalox Max Susp) 15 ml Q4H PRN PO 05/13/17 16:30 06/12/17 16:29 Magnesium Hydroxide (Milk Of Magnesia Susp) 30 ml Q12H PRN PO 05/13/17 16:30 06/12/17 16:29 Ondansetron HCl (Zofran Inj) 4 mg Q6H PRN IV 05/13/17 16:30 06/12/17 16:29 Nitroglycerin (Nitrostat Tab) 0.4 mg UD PRN SL 05/13/17 16:30 06/12/17 16:29 Polyethylene (Miralax Powder Packet) 17 gm DAILY PRN PO 05/13/17 16:30 06/12/17 16:29 Sodium Chloride 1,000 ml @ 150 mls/hr Q6H40M IV 05/13/17 16:28 06/12/17 16:27 Future Hold 05/13/17 18:21 150 MLS/HR Amlodipine Besylate (Norvasc Tab) 10 mg DAILY PO 05/14/17 09:00 06/13/17 08:59 05/14/17 09:09 10 MG Aspirin (Ecotrin Tab) 81 mg DAILY PO 05/14/17 09:00 06/13/17 08:59 05/14/17 09:09 81 MG Atorvastatin Calcium (Lipitor Tab) 10 mg DAILY PO 05/14/17 09:00 06/13/17 08:59 05/14/17 09:10 10 MG Citalopram Hydrobromide (celeXA TAB) 40 mg HS PO 05/13/17 21:00 06/12/17 20:59 05/13/17 19:38 40 MG Risperidone (Risperdal Tab) 1 mg HS PO 05/13/17 21:00 06/12/17 20:59 05/13/17 19:38 1 MG Hydralazine HCl (HydrALAZINE INJ) 10 mg Q6 PRN IV. 05/13/17 16:30 06/12/17 16:29 05/14/17 08:40 10 MG Metoprolol Tartrate (Lopressor Iv) 5 mg Q6 PRN IV 05/13/17 16:30 06/12/17 16:29 Insulin Human Regular 250 units/ Sodium Chloride 252.5 ml @ 0 mls/hr DAILY@1130 IV 05/13/17 17:30 05/14/17 16:00 05/13/17 18:29 2.4 MLS/HR Glucose (Glucose 40% Gel) UD PRN PO 05/13/17 17:15 06/12/17 17:14 Glucose (Glucose Chew Tab) 1 tabs UD PRN PO 05/13/17 17:15 06/12/17 17:14 Dextrose (Dextrose 50% 50ML Syringe) 50 ml UD PRN IV 05/13/17 17:15 06/12/17 17:14 Glucagon (Glucagon Inj) 1 mg UD PRN SQ 05/13/17 17:15 06/12/17 17:14 Acetaminophen (Tylenol Supp) 650 mg Q4H PRN WI 05/13/17 18:00 06/12/17 17:59 Miscellaneous Information (Consult Glycemic Management Pharmacy) 1 ea UD PRN N/A 05/14/17 09:37 06/13/17 09:36 Miscellaneous Information (Dc Iv Insulin Infusion) 1 ea TODAY@1600 ONCE N/A 05/14/17 16:00 05/14/17 16:01 05/14/17 11:37 1 EA Insulin Aspart (novoLOG ASPART) ACHS SD 05/14/17 11:00 06/13/17 10:59 05/14/17 10:51 6 UNITS Insulin Glargine (Lantus Solostar Pen) 15 unit HS SD 05/14/17 21:00 06/13/17 20:59 Insulin Glargine (Lantus Solostar Pen) 17 unit BID SD 05/15/17 09:00 06/14/17 08:59 Insulin Aspart (novoLOG ASPART) SLIDING SCALE TODAY@0000,0400 SD 05/15/17 00:00 05/15/17 04:01 Objective Vital Signs Date Time Temp Pulse Resp B/P (MAP) Pulse Ox O2 Delivery O2 Flow Rate FiO2 05/14/17 12:00 Room Air Oxymask 05/14/17 12:00 36.8 85 16 159/97 (117) 94 Room Air 05/14/17 08:00 Room Air Oxymask 05/14/17 07:50 36.9 85 17 171/113 (132) 93 Room Air 165/110 (128) 05/14/17 04:00 Room Air Oxymask 05/14/17 03:31 36.8 93 19 179/97 (124) 93 Room Air 05/14/17 00:49 155/93 (113) 94 Room Air 05/14/17 00:38 171/96 (121) 05/13/17 23:59 Room Air Oxymask 05/13/17 23:57 36.7 102 16 163/115 (131) 97 Oxymask 2.0 05/13/17 20:12 118 18 152/111 (125) 97 Oxymask 2.0 05/13/17 20:00 Oxymask 3.0 05/13/17 19:06 37.7 125 22 171/117 (135) 96 Mask 4.0 05/13/17 17:45 37.9 126 26 160/120 94 Nasal Cannula 2.0 05/13/17 15:45 120 24 191/131 93 Nasal Cannula 2.0 05/13/17 15:07 108 24 195/121 95 Nasal Cannula 2.0 Physical Exam General Appearance: WD/WN, no apparent distress ENT: normal ENT inspection, hearing grossly normal, pharynx normal Neck: supple, no adenopathy, no JVD, trachea midline Respiratory/Chest: chest non-tender, lungs clear, normal breath sounds, no respiratory distress, no accessory muscle use Cardiovascular: regular rate, rhythm, no edema, no gallop, no JVD, no murmur Abdomen: normal bowel sounds, non tender, soft, no organomegaly Extremities: normal range of motion, non-tender, normal inspection, no pedal edema, no calf tenderness, pelvis stable Neurologic/Psychiatric: frame cleaner II-XII nml as tested, no motor/sensory deficits, alert, normal mood/affect, oriented x 3, + disoriented Skin: normal color, warm/dry, no rash Lymphatic: no adenopathy Laboratory Results Last 24 Hours Test 05/13/17 16:16 05/13/17 17:19 05/13/17 19:30 05/13/17 19:33 Bedside Glucose 510 mg/dl 533 mg/dl 394 mg/dl Urine Color YELLOW Urine Appearance CLEAR Urine pH 6.5 Urine Specific [place] 1.036 Urine Protein 3+ Urine Glucose (UA) 3+ Urine Ketones TRACE Urine Occult Blood 1+ Urine Nitrite NEG Urine Bilirubin NEG Urine Urobilinogen NEG Urine Leukocyte Esterase NEG Urine WBC (Auto) 1-5 /hpf Urine RBC (Auto) 5-10 /hpf Urine Hyaline Casts (Auto) 1-5 /lpf Urine Epithelial Cells (Auto) >30 /lpf Urine Bacteria (Auto) NEG Test 05/13/17 20:20 05/13/17 20:29 05/13/17 21:35 05/13/17 22:00 Venous Blood pH 7.43 Sodium Level 137 mmol/L Potassium Level 4.1 mmol/L Chloride Level 103 mmol/L Carbon Dioxide Level 24 mmol/L Anion Gap 10.0 mmol/L Blood Urea Nitrogen 17 mg/dl Creatinine 1.50 mg/dl Est Creatinine Clear Calc Drug Dose 55.9 ml/min Estimated GFR () 56.6 Estimated GFR (Non- 48.8 BUN/Creatinine Ratio 11.6 Random Glucose 402 mg/dl Lactic Acid Level 1.7 mmol/L Calcium Level 9.2 mg/dl Phosphorus Level 2.7 mg/dl Magnesium Level 2.3 mg/dl Beta-Hydroxybutyric Acid 7.13 mg/dL Hepatitis C Antibody Screen PRELIM POS Bedside Glucose 384 mg/dl 364 mg/dl Creatine Kinase MB Ratio Test 05/13/17 22:29 05/13/17 23:35 05/13/17 23:59 05/14/17 00:03 Bedside Glucose 404 mg/dl 344 mg/dl Creatine Kinase MB Ratio Venous Blood pH 7.45 Sodium Level 139 mmol/L Potassium Level 4.1 mmol/L Chloride Level 106 mmol/L Carbon Dioxide Level 24 mmol/L Anion Gap 9.0 mmol/L Blood Urea Nitrogen 18 mg/dl Creatinine 1.30 mg/dl Est Creatinine Clear Calc Drug Dose 64.6 ml/min Estimated GFR () 67.3 Estimated GFR (Non- 58.1 BUN/Creatinine Ratio 13.6 Random Glucose 349 mg/dl Calcium Level 9.0 mg/dl Phosphorus Level 2.8 mg/dl Magnesium Level 2.2 mg/dl Creatine Kinase MB 2.6 ng/ml Troponin I 0.035 ng/ml Beta-Hydroxybutyric Acid 4.34 mg/dL Test 05/14/17 00:35 05/14/17 01:31 05/14/17 02:30 05/14/17 03:27 Bedside Glucose 416 mg/dl 304 mg/dl 264 mg/dl 236 mg/dl Test 05/14/17 04:29 05/14/17 04:31 05/14/17 05:33 05/14/17 06:34 Bedside Glucose 173 mg/dl 275 mg/dl 252 mg/dl White Blood Count 7.71 K/uL Red Blood Count 4.67 M/uL Hemoglobin 14.3 g/dL Hematocrit 40.5 % Mean Corpuscular Volume 86.7 fL Mean Corpuscular Hemoglobin 30.6 pg Mean Corpuscular Hemoglobin Concent 35.3 g/dl RDW Standard Deviation 37.7 fL RDW Coefficient of Variation 12.0 % Platelet Count 296 K/uL Mean Platelet Volume 10.5 fL Venous Blood pH 7.44 Sodium Level 141 mmol/L Potassium Level 3.8 mmol/L Chloride Level 109 mmol/L Carbon Dioxide Level 25 mmol/L Anion Gap 7.0 mmol/L Blood Urea Nitrogen 15 mg/dl Creatinine 1.20 mg/dl Est Creatinine Clear Calc Drug Dose 69.9 ml/min Estimated GFR () 74.1 Estimated GFR (Non- 64.0 BUN/Creatinine Ratio 12.4 Random Glucose 178 mg/dl Estimated Average Glucose 338 mg/dl Hemoglobin A1c 13.4 % Calcium Level 9.1 mg/dl Phosphorus Level 2.3 mg/dl Magnesium Level 2.1 mg/dl Total Bilirubin 0.5 mg/dl Aspartate Amino Transf (AST/SGOT) 43 U/L Alanine Aminotransferase (ALT/SGPT) 85 U/L Alkaline Phosphatase 65 U/L Total Protein 7.5 gm/dl Albumin 3.5 gm/dl Globulin 4.0 gm/dl Albumin/Globulin Ratio 0.9 Amylase Level 81 U/L Lipase 275 U/L Test 05/14/17 07:47 05/14/17 08:20 05/14/17 08:49 05/14/17 09:15 Bedside Glucose 286 mg/dl 278 mg/dl Sodium Level 140 mmol/L Potassium Level mmol/L 3.4 mmol/L Chloride Level 106 mmol/L Carbon Dioxide Level 24 mmol/L Anion Gap 10.0 mmol/L Blood Urea Nitrogen 13 mg/dl Creatinine 1.20 mg/dl Est Creatinine Clear Calc Drug Dose 68.0 ml/min Estimated GFR () 74.1 Estimated GFR (Non- 64.0 BUN/Creatinine Ratio 11.2 Random Glucose 273 mg/dl Calcium Level 8.8 mg/dl Phosphorus Level 2.6 mg/dl Magnesium Level mg/dl 2.1 mg/dl Venous Blood pH 7.44 Test 05/14/17 09:48 05/14/17 11:23 05/14/17 12:10 05/14/17 13:26 Bedside Glucose 281 mg/dl 227 mg/dl 178 mg/dl Venous Blood pH 7.39 Sodium Level 139 mmol/L Potassium Level 3.5 mmol/L Chloride Level 105 mmol/L Carbon Dioxide Level 26 mmol/L Anion Gap 8.0 mmol/L Blood Urea Nitrogen 12 mg/dl Creatinine 1.10 mg/dl Est Creatinine Clear Calc Drug Dose 74.2 ml/min Estimated GFR () 82.4 Estimated GFR (Non- 71.1 BUN/Creatinine Ratio 10.5 Random Glucose 194 mg/dl Calcium Level 8.9 mg/dl Phosphorus Level 2.3 mg/dl Magnesium Level 2.1 mg/dl Test 05/14/17 14:43 Bedside Glucose 262 mg/dl Assessment and Plan Patient is a 61 y/o male, with PMHx of HTN, dyslipidemia, T2DM, and mental health issues, who presented to the ED from [facility] because of persistent hyperglycemia, AMS, and syncopal episode. T2DM in DKA w/ compensated metabolic acidosis/AMS/Syncopal episode: due to poor compliance with diabetes medications anion gap closed, sugars 150-200's, stop D51/2NSS transition off insulin gtt today, give Lantus 35 units, start BID dosing 05/15 electrolytes stable start diabetic diet for dinner keep chau today, d/c tomorrow no signs of infection, again, likely due to poor compliance syncope was due to acidosis HTN- poorly controlled on admission Continue Amlodipine 10 mg daily and 81 mg daily resume Lisinopril 40 mg daily and HCTZ 25 mg daily now that Cr down to 1.1 Hydralazine IV 10 mg PRN for SBP >180 or DBP >100 Tachycardia: due to acidosis, DKA, resolved with treatment [id number]: due to DKA, resolved with IV fluids resume Lisinopril and HCTZ tomorrow keep chau today, d/c tomorrow Mental health issues- unsure of diagnoses due to AMS: - Continue Risperidone 1 mg HS and Celexa 40 mg HS Dyslipidemia: Continue Atorvastatin 10 mg daily Elevated LFTs: AST/ALT trending down appropriately, probably up in setting of dehydration, acidosis GI Prophylaxis: Maalox PRN, IV Zofran PRN, Colace and/or Milk of Mag PRN DVT prophylaxis: Lovenox 40 mg SQ q24 hrs, DAMARI and SCDs
[2017-05-14 17:05] LABS: BUN/CREATININE RATIO 10.9 (10-20); CALCIUM 8.7 mg/dl (8.5-10.1); CREATININE 1.3 mg/dl (0.60-1.40); MAGNESIUM 2.1 mg/dl (1.8-2.4); PHOSPHORUS 2.5 mg/dl (2.5-4.9)
[2017-05-14 17:14] LABS: POTASSIUM 4.3 mmol/L (3.5-5.1)
[2017-05-14] MEDS: ENOXAPARIN 40 MG/0.4 ML SYR SC SCH (17:39)
[2017-05-14] MEDS: CITALOPRAM 40 MG TAB PO SCH (20:40)
[2017-05-14] MEDS: RISPERIDONE 1 MG TAB PO SCH (20:40)
[2017-05-14] MEDS ORDERED: INSULIN GLARGINE SOLOSTAR 100 UNITS/ML 3 ML PEN SC SCH ×2 (21:00)
[2017-05-14] MEDS ORDERED: INSULIN HUMAN REGULAR IV BOLUS 4 UNIT in SYRINGE 0 ML IV ONE (21:15)
[2017-05-15] VITALS: BP 134/91; PULSE 83; TEMP 36.6; O2SAT 93
[2017-05-15] MEDS: INSULIN ASPART 100 UNITS/ML 3 ML PEN SC SCH ×3 (03:29→12:00)
[2017-05-15 06:40] LABS: MEAN CELL VOLUME 87.6 fL (80-100); MEAN CORPUSCULAR HEMOGLOBIN 30.3 pg (25-34); MEAN CORPUSCULAR HGB CONC 34.6 g/dl (32-36); MEAN PLATELET VOLUME 10.5 fL (7.4-10.4); PLATELET COUNT 285 K/uL (130-400); RED BLOOD COUNT 4.68 M/uL (4.7-6.1)
[2017-05-15 07:10] LABS: BUN/CREATININE RATIO 12.2 (10-20); CALCIUM 8.7 mg/dl (8.5-10.1); CREATININE 0.99 mg/dl (0.60-1.40); MAGNESIUM 2.1 mg/dl (1.8-2.4); PHOSPHORUS 2.8 mg/dl (2.5-4.9); POTASSIUM 3.4 mmol/L (3.5-5.1)
[2017-05-15 07:18] VITALS: BP 152/104; PULSE 85; TEMP 36.7; O2SAT 93
[2017-05-15] MEDS: ASPIRIN 81 MG ECTAB PO SCH (08:11)
[2017-05-15] MEDS: ATORVASTATIN 10 MG TAB PO SCH (08:11)
[2017-05-15] MEDS: AMLODIPINE BESYLATE 5 MG TAB PO SCH (08:11)
[2017-05-15] MEDS ORDERED: INSDGIPEN SC ×2 (08:43→10:10)
[2017-05-15] MEDS ORDERED: LISINOPRIL 40 MG TAB PO SCH (09:00)
[2017-05-15] MEDS ORDERED: HYDROCHLOROTHIAZIDE 25 MG TAB PO SCH (09:00)
[2017-05-15] MEDS ORDERED: INSULIN GLARGINE SOLOSTAR 100 UNITS/ML 3 ML PEN SC SCH (09:00)
--- NOTE | 2017-05-15 09:00 | Pharmacy Progress Note ---
Glycemic Control: Progress Nt Date of Service May 15, 2017. Scope Glycemic Pharmacist consulted by Dr Ta on 05/13/2017 for glycemic control and to write orders per [facility] inpatient glycemic control protocol. Objective Accuchecks BSG (last 24hrs): Test 05/14/17 09:48 05/14/17 11:23 05/14/17 12:10 05/14/17 13:26 Bedside Glucose 281 mg/dl (70-99) 227 mg/dl (70-99) 178 mg/dl (70-99) Random Glucose 194 mg/dl (70-99) Test 05/14/17 14:43 05/14/17 16:23 05/14/17 16:26 05/14/17 20:30 Bedside Glucose 262 mg/dl (70-99) 238 mg/dl (70-99) 392 mg/dl (70-99) Random Glucose 241 mg/dl (70-99) Test 05/14/17 22:30 05/14/17 23:53 05/15/17 03:26 05/15/17 05:58 Bedside Glucose 275 mg/dl (70-99) 235 mg/dl (70-99) 192 mg/dl (70-99) Random Glucose 152 mg/dl (70-99) Test 05/15/17 07:33 Bedside Glucose 182 mg/dl (70-99) Laboratory Data (last 24hrs) Test 05/14/17 09:15 05/14/17 12:10 05/14/17 16:26 05/15/17 05:58 Potassium Level 3.4 mmol/L 3.5 mmol/L 4.3 mmol/L 3.4 mmol/L Anion Gap 8.0 mmol/L 8.0 mmol/L 9.0 mmol/L BUN/Creatinine Ratio 10.5 10.9 12.2 Blood Urea Nitrogen 12 mg/dl 14 mg/dl 12 mg/dl Creatinine 1.10 mg/dl 1.30 mg/dl 0.99 mg/dl Sodium Level 139 mmol/L 136 mmol/L 139 mmol/L White Blood Count 6.20 K/uL HbA1c: Test 05/14/17 04:31 Hemoglobin A1c 13.4 % (4.5-5.6) H Recent Pertinent Medications Outpatient Anti-diabetic Regimen: * not compliant x at least 1 month (listed as regular insulin 20 units daily, glipizide 10 mg BID, metformin 1 gm PO BID) The patient is currently receiving: * Lantus 35 units x 1 then 15 units in the evening on 05/14/2017 ---> transitioned to Lantus 17 units twice daily * Novolog correctional insulin : correction factor of 20 and carbohydrate ratio of 7 Risk Factors for Insulin Resistance: * Diet: type 2 diabetic diet Assessment & Plan ASSESSMENT: * ADA & AACE recommend a goal blood sugar range 140-180 mg/dl for the majority of critically ill & non-critically ill patients. However, more stringent targets may be selected in individual cases. Will utilize more stringent goal of 110-140mg/dl based on patient age & comorbidities. I believe that a tighter goal is necessary for this individual to achieve glycemic control. A higher goal range may not allow him to receive enough insulin to maintain blood sugar control. * Mr Purdy is a 61 y/o M who resides in the mental health unit at [facility]. He was admitted after a fall at the facility; he has weakness and dizziness. He has been refused his medications for a month. When admitted his blood sugar was greater than 600 mg/dL. He was started on an insulin drip in the ED. He was transitioned off the insulin drip yesterday. He was given the full dose of 35 units of Lantus then 15 units at night. Unfortunately his blood sugar was higher yesterday evening and he required an IV insulin bolus. * This morning, the patient's blood sugar is 182 mg/dL. He required approximately 87 units of insulin yesterday. His blood sugars ranged from 278- 392 mg/dL. Unfortunately, the lunch blood sugar was 333 mg/dL. It appears that the patient is still basal deficient. I ordered an extra 10 units of Lantus for today and an IV bolus of regular insulin. He is set to be discharged this afternoon. PLAN FOR INPATIENT GLYCEMIC CONTROL: * Holding outpatient oral diabetes medications * Basal insulin with LANTUS 17 units SQ BID * Correctional Insulin with NOVOLOG per scale ACHS * Goal Range: Low 110 mg/dL - High 140 mg/dL * Correction Factor: 20 mg/dL/unit * Nutritional / Prandial insulin per carb ratio of 1 unit per 7 grams CHO consumed RECOMMENDATIONS FOR DISCHARGE * Lantus 15 units twice daily (may need titrated upwards) * Novolog 5 units with meals (may need titrated upwards) hold if does not eat, if greater than 200 mg/dL give total of 7 units of Novolog * continue metformin DISCONTINUE glipizide (can increase risk of hypoglycemia with insulin) * Please note that the plan above was derived based on current level of insulin resistance and hospital stress. These recommendations are appropriate for inpatient admission only. Plan of care upon discharge will need to be reassessed to avoid potential outpatient hypo/hyperglycemia. Thank you.
[2017-05-15] MEDS ORDERED: NVLG SC (10:10)
--- NOTE | 2017-05-15 10:12 | Discharge Instructions ---
Discharge Instructions Date of Service May 15, 2017. Admission Reason for Admission: Ams, Diabetic Ketoacidoses, Hyperglycemia Discharge Discharge Diagnosis / Problem: DKA due to non-compliance, encephalopathy due to acidosis Discharge Goals Goal(s): Improve function, Improve disease control, Specific goals (patient NEEDS to take diabetes medications) Activity Recommendations Activity Limitations: resume your previous activity Lifting Limitations: none Exercise/Sports Limitations: as tolerated May Resume Sexual Activity: when tolerated Shower/Bathe: no limitations . Instructions / Follow-Up Instructions / Follow-Up Medications: - GLIPIZIDE: stop this medication as it can cause hypoglycemia in combination with insulin use - LANTUS: 15 units twice a day - NOVOLO units with meals, can increase to 7 units if blood glucose >200 prior to meals DKA: due to non-compliance with diabetes medications, there was no evidence of infection, [place], pancreatitis. Patient NEEDS to take Metformin and Lantus and Novolog please follow a diabetic diet FOLLOW UP - SCI physician this week Current Hospital Diet Patient's current hospital diet: Diabetes Type 2 Diet Discharge Diet Recommended Diet: Diabetes Type 2 Diet Pending Studies Studies pending at discharge: no Laboratory Results Hemoglobin A1c Test 05/14/17 04:31 Range/Units Estimated Average Glucose 338 mg/dl Hemoglobin A1c 13.4 H 4.5-5.6 % Medical Emergencies . Who to Call and When: Medical Emergencies: If at any time you feel your situation is an emergency, please call 911 immediately. . Non-Emergent Contact Non-Emergency issues call your: Primary Care Provider Call Non-Emergent contact if: you have any medication questions . . "Provider Documentation" section prepared by Ender Ta. . VTE Core Measure Inpt VTE Proph given/why not?: Enoxaparin (Lovenox)Vivian GALDAMEZ, SCD's [place] Drug Monitoring Program Search Results: no issues identified
[2017-05-15 10:19] VITALS: BP 152/104; PULSE 85; TEMP 36.7; O2SAT 93
[2017-05-15] MEDS ORDERED: INSULIN HUMAN REGULAR PER UNIT 5 UNITS in SYRINGE 4.95 ML IV SCH (12:00)
[2017-05-15] MEDS ORDERED: INSULIN GLARGINE SOLOSTAR 100 UNITS/ML 3 ML PEN SC ONE (12:00)
--- NOTE | 2017-05-16 09:27 | Discharge Summary ---
Discharge Summary Date of Service May 15, 2017. Discharge Summary Admission Date: May 13, 2017 at 16:39 Discharge Date: May 15, 2017 Discharge Disposition: Personal care ([facility]) Principal Diagnosis: DKA Problems/Secondary Diagnoses: Altered mental status HTN DM type II Unknown schizoaffective disorder Procedures: none Consultations: Pharmacy Medication Reconciliation New Medications: Insulin Aspart (Novolog) 100 Units/Ml Inj 5 UNITS SC TIDM for 30 Days, #1 BOX 3 Refills Insulin Glargine (Lantus Solostar) 100 Unit/Ml Inj 15 UNIT SC BID for 30 Days, #1 BOX 2 Refills Continued Medications: Amlodipine (Norvasc) 10 Mg Tab 10 MG PO DAILY, TAB Aspirin (Aspir-81) 81 Mg Tab 1 TAB PO DAILY for 90 Days, #90 TAB 3 Refills Atorvastatin (Lipitor) 10 Mg Tab 10 MG PO DAILY, TAB Citalopram Hydrobromide (Celexa) 40 Mg Tab 40 MG PO HS, TAB Diphenhydramine Hcl (Benadryl Allergy) 25 Mg Tab 3 CAP PO HS Hydrochlorothiazide (Hctz) 25 Mg Tab 25 MG PO DAILY, TAB Lisinopril (Lisinopril) 40 Mg Tab 1 TAB PO DAILY Metformin Hcl (Glucophage) 1,000 Mg Tab 1000 MG PO BIDM, TAB Risperidone (Risperdal) 1 Mg Tab 1 MG PO HS, TAB Discontinued Medications: Glipizide (Glipizide) 10 Mg Tab 1 TAB PO BID Insulin Human Regular (Humulin R) 1,000 Units/10 Ml Inj 20 UNITS SQ DAILY Discharge Exam Patient doing well, thinking clearly. Denies pain. Eating well. Sugars well controlled. D/w pharmacy, plan will be put in place on discharge. Review of Systems: Constitutional: No fever, No chills, No sweats, No weight loss, No weakness , No fatigue, No problem reported Eyes: No worsening of vision, No eye pain, No redness, No discharge, No diplopia, No problem reported ENT: No hearing loss, No unusual epistaxis, No nasal symptoms, No sore throat, No tinnitus, No dental problems, No trouble swallowing, No problem reported Respiratory: No cough, No sputum, No wheezing, No shortness of breath, No dyspnea on exertion, No dyspnea at rest, No hemoptysis, No problem reported Cardiovascular: No chest pain, No orthopnea, No PND, No edema, No claudication, No palpitations, No problem reported Abdomen: No pain, No nausea, No vomiting, No diarrhea, No constipation, No GI bleeding, No problem reported Musculoskeletal: No joint pain, No muscle pain, No swelling, No calf pain, No problem reported Genitourinary - Male: No hematuria, No dysuria, No urinary frequency, No urinary urgency Neurologic: No memory loss, No paralysis, No weakness, No numbness/tingling , No vertigo, No balance problems, No problem reported Psychiatric: No depression symptoms, No anhedonism, No anxiety, No insomnia , No substance abuse, No problem reported Endocrine: No fatigue, No excessive thirst, No excessive urination, No problem reported Hematologic / Lymphatic: No abnormal bleeding/bruising, No clotting problems , No swollen lymph nodes, No night sweats, No problem reported Integumentary: No rash, No itch, No new/changing skin lesions, No color change, No bleeding, No problem reported Physical Exam: General Appearance: WD/WN, no apparent distress Eyes: normal inspection, EOMI, sclerae normal ENT: normal ENT inspection, hearing grossly normal, pharynx normal Neck: supple, no adenopathy, no JVD, trachea midline Respiratory/Chest: chest non-tender, lungs clear, normal breath sounds, no respiratory distress, no accessory muscle use Cardiovascular: regular rate, rhythm, no edema, no gallop, no JVD, no murmur , normal peripheral pulses Abdomen / GI: normal bowel sounds, non tender, soft, no organomegaly Extremities: normal inspection, no calf tenderness, normal capillary refill , no pedal edema, normal range of motion, pelvis stable 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 T2DM in DKA w/ compensated metabolic acidosis/AMS/Syncopal episode: due to poor compliance with diabetes medications anion gap closed, sugars 150-180's, stopped D51/2NSS on 05/14 transitioned off insulin gtt 05/14, gave Lantus 35 units, start BID dosing electrolytes stable tolerated diabetic diet d/c kandi no signs of infection, again, likely due to poor compliance syncope was due to acidosis plan: stop Glipizide due to tendency for hypoglycemia with insulin use Lantus 15 BID, Novolog 5 units with meals, Metformin stressed the importance of compliance HTN- poorly controlled on admission, better after 24 hours Continue Amlodipine 10 mg daily and 81 mg daily resume Lisinopril 40 mg daily and HCTZ 25 mg daily now that Cr down to 1.1 Hydralazine IV 10 mg PRN for SBP >180 or DBP >100 Tachycardia: due to acidosis, DKA, resolved with treatment [place]: due to DKA, resolved with IV fluids resume Lisinopril and HCTZ on discharge kandi d/c Mental health issues- unsure of diagnoses due to AMS: - Continue Risperidone 1 mg HS and Celexa 40 mg HS Dyslipidemia: Continue Atorvastatin 10 mg daily Elevated LFTs: AST/ALT trending down appropriately, probably up in setting of dehydration, acidosis GI Prophylaxis: Maalox PRN, IV Zofran PRN, Colace and/or Milk of Mag PRN DVT prophylaxis: Lovenox 40 mg SQ q24 hrs, DAMARI and SCDs Total Time Spent: Greater than 30 minutes This includes examination of the patient, discharge planning, medication reconciliation, and communication with other providers. Discharge Instructions Please refer to the electronic Patient Visit Report (Discharge Instructions) for additional information. Follow-Up Physician at [facility] Additional Copies To Caitie JIMÉNEZ
== END 2017-05-15 14:30 | disposition home or self-care (01) | DRG 638 ==
LOC: C.EDC 13:03 → C.2T 16:39 → ENRESERV 16:48 → C.MS2W 05-14 18:22
PROVIDERS: ADMIT Internal Medicine; ATTEND Internal Medicine
DX: E13.10 Other specified diabetes mellitus with ketoacidosis without coma (principal); N17.9 Acute kidney failure, unspecified; I10 Essential (primary) hypertension; E78.5 Hyperlipidemia, unspecified; F25.9 Schizoaffective disorder, unspecified; Z79.82 Long term (current) use of aspirin; Z79.4 Long term (current) use of insulin; Z79.84 Long term (current) use of oral hypoglycemic drugs; Z79.899 Other long term (current) drug therapy